=== PATIENT | female | born 1980 | race American Indian/Alaskan Native ===

== ENCOUNTER 2021-12-01 10:00 | Outpatient (CLI) | payer OTHER ==
--- NOTE | 2021-12-01 14:47 | Magnetic Resonance Report ---
MRI BREAST BILATERAL WITH AND WITHOUT CONTRAST, 12/01/2021 CLINICAL INFORMATION / INDICATION: UNSPECIFIED LUMP IN BILATERAL BREASTS, OVERLAPPING QUADS. Patient presents for evaluation of areas of palpable concern in both breasts. TECHNIQUE: Axial T1 and T2-weighted fat sat images were obtained precontrast. Gadolinium-based contra st was injected intravenously and serial axial T1 weighted images with fat saturation were obtained. 3-D MIP projections, kinetic analysis, and subtraction imaging were utilized to evaluate. A dedicated 8-channel breast coil was used for image acquisition. COMPARISON: None available FINDINGS: BREAST DENSITY: The breasts are heterogeneously dense, which may obscure small masses. BACKGROUND ENHANCEMENT: Low level background enhancement within both breasts. RIGHT BREAST: No dominant mass or suspicious area of enhancement in the right breast. There are scatt ered benign simple and mildly complicated cysts seen throughout the lateral right breast, with the la rgest in the 10:00 position, middle depth, measuring up to 5.2 cm. LEFT BREAST: No dominant mass or suspicious area of enhancement in the left breast. There are several scattered small benign cysts in the left breast, with the largest in the 12:00 position, anterior de pth, measuring up to 10 mm. AXILLAE: No pathologically enlarged axillary lymph nodes. ADDITIONAL FINDINGS: Limited imaging of the thorax and upper abdomen demonstrates no focal abnormalit y. IMPRESSION: 1. No suspicious MRI abnormality identified in either breast. 2. Multiple benign cysts seen throughout both breasts, right greater than left. Follow up recommendation: Back to schedule. BI-RADS Category 2: BENIGN. Signer Name: Chanelle Guido MD Signed: 12/01/2021 2:42 PM Workstation Name: [facility]
== END 2021-12-01 10:01 | disposition home or self-care (01) ==
LOC: SPVIMAG 10:00
PROVIDERS: ATTEND Surgery
DX: N60.02 Solitary cyst of left breast (principal); N60.01 Solitary cyst of right breast; N63.15 Unspecified lump in the right breast, overlapping quadrants; N63.25 Unspecified lump in the left breast, overlapping quadrants
CPT/HCPCS: A9575; C8908; 77049